=== PATIENT | female | born 1945 | race Hispanic/Latino ===

== ENCOUNTER → 2024-11-11 | Outpatient (CLI) | payer OTHER ==
--- NOTE | 2024-11-11 13:07 | HMCIMG ---
RIGHT HIP RADIOGRAPHS - 3 VIEWS including the pelvis INDICATION: Pain COMPARISON: None FINDINGS: AP and abduction views. No acute fracture or subluxation identified. There is mild osteopenia. Femoral head is well formed without osteochondral erosion or radiographic evidence for avascular necrosis. No radiopaque foreign body noted. There are multiple popcorn-like calcification suggesting of fibroids. There is atherosclerotic changes of both common and superficial femoral arteries with calcified plaque. IMPRESSION: No evidence for fracture or dislocation. Mild osteopenia Multiple popcorn-like calcification density suggesting of multiple fibroids
--- NOTE | 2024-11-11 13:08 | HMCIMG ---
Exam: CERVICAL SPINE 3 VIEWS REASON: NECK PAIN TECHNIQUE: 3 views were obtained. FINDINGS: There are normal appearing vertebral bodies there is mild disc disease with loss of disc height at C5-C6 followed by C6-C7. There are no visible fractures. Soft tissues appear unremarkable.There is mild osteopenia. IMPRESSION: 1. No acute fracture or malalignment 2. Mild osteopenia 3. Mild disc disease with loss of disc height at C5-C6 and C6-C7.
--- NOTE | 2024-11-12 07:48 | HMCIMG ---
EXAMINATION: COMPLETE TRANSABDOMINAL ULTRASOUND OF PELVIS. CLINICAL HISTORY: Pain. COMPARISON: None provided. TECHNIQUE: Multiple real-time grayscale images of the pelvis were obtained with transabdominal transducer. FINDINGS: The uterus is anteverted, normal in caliber and measures 4.6 x 2.5 x 2.0 cm in the craniocaudal, AP, and transverse dimensions respectively. The endometrium is not well visualized. Cervix appears normal. Both the ovaries are not visualized, obscured by overlying bowel gas. There is no free fluid in the cul-de-sac. There is abundant intestinal air in the right lower quadrant with poor acoustic window. IMPRESSION: No significant abnormality. /Thatcher
== END | disposition home or self-care (01) ==
LOC: RAH 11:20
PROVIDERS: ATTEND Physician Assistant
DX: M50.80 Other cervical disc disorders, unspecified cervical region (principal); M85.89 Other specified disorders of bone density and structure, multiple sites; I25.10 Atherosclerotic heart disease of native coronary artery without angina pectoris; M25.551 Pain in right hip; R10.2 Pelvic and perineal pain
CPT/HCPCS: 72040; 73502; 76856